=== PATIENT | female | born 1950 | race African-American/Black ===

== ENCOUNTER 2019-03-04 13:27 | Outpatient (CLI) | payer MEDICARE, OTHER ==
--- NOTE | 2019-03-04 14:05 | MMO ---
Bilateral MAMMO Bilat Screen [facility]. CLINICAL HISTORY: Patient is 68 years old and is seen for screening. The patient has no family history of breast cancer. The patient has no personal history of cancer. VIEWS: The views performed were: bilateral craniocaudal with tomosynthesis and bilateral mediolateral oblique with tomosynthesis. FILMS COMPARED: The present examination has been compared to prior imaging studies performed at [facility] on 01/16/2013 and 01/07/2015, and at [facility] on 11/25/2006. This study has been interpreted with the assistance of computer-aided detection. MAMMOGRAM FINDINGS: There are scattered fibroglandular densities. There are no suspicious masses, suspicious calcifications, or new areas of architectural distortion. IMPRESSION: THERE IS NO MAMMOGRAPHIC EVIDENCE OF MALIGNANCY. A ROUTINE FOLLOW-UP MAMMOGRAM IN 1 YEAR IS RECOMMENDED. THE RESULTS OF THIS EXAM WERE SENT TO THE PATIENT. ACR BI-RADS Category 1 - Negative MAMMOGRAPHY NOTE: 1. A negative mammogram report should not delay a biopsy if a dominant of clinically suspicious mass is present. 2. Approximately 10% to 15% of breast cancers are not detected by mammography. 3. Adenosis and dense breasts may obscure an underlying neoplasm. Reported by: HUNTER HIGGINBOTHAM MD Electonically Signed: [id number]
== END 2019-03-04 13:28 | disposition home or self-care (01) ==
LOC: BICMAMMO 13:27
PROVIDERS: ATTEND Internal Medicine
DX: Z12.31 Encounter for screening mammogram for malignant neoplasm of breast (principal)
CPT/HCPCS: 77063; 77067

== ENCOUNTER 2021-10-17 12:59 | Outpatient (CLI) | payer MEDICARE, MEDICAID | END 2021-10-17 13:00 | disposition home or self-care (01) | LOC: BICMAMMO 12:59 | PROVIDERS: ATTEND Nurse Practitioner Family | DX: Z12.31 Encounter for screening mammogram for malignant neoplasm of breast (principal); Z85.07 Personal history of malignant neoplasm of pancreas | CPT/HCPCS: 77063; 77067 ==

== ENCOUNTER 2021-12-14 07:27 | Outpatient (CLI) | payer MEDICARE, OTHER ==
[2021-12-14] MEDS ORDERED: Iopamidol 370 76% 100 ML VIAL ONE (08:00)
== END 2021-12-14 07:28 | disposition home or self-care (01) ==
LOC: CT 07:27 → BICCT 07:28
PROVIDERS: ATTEND Physician Assistant Medical
DX: K59.00 Constipation, unspecified (principal); R63.4 Abnormal weight loss; R97.8 Other abnormal tumor markers; Z85.07 Personal history of malignant neoplasm of pancreas; Z90.410 Acquired total absence of pancreas
CPT/HCPCS: 71260; 74177; 82565; Q9967